=== PATIENT | female | born 1965 | race Caucasian/White ===

== ENCOUNTER 2018-05-01 17:41 | Emergency (ER) | payer MEDICARE, MEDICAID ==
[2018-05-01 17:51] VITALS: BP 118/79
[2018-05-01] MEDS ORDERED: DIPH/PERTUSS(ACELL)/TETANUS VAC/PF 0.5 ML SYR (>=10YO) IM ONE (18:01)
[2018-05-01] MEDS ORDERED: LIDOCAINE 1% INJ-PF (10 MG/ML) 30 ML SDV INJ ONE (18:01)
--- NOTE | 2018-05-01 18:02 | ER Document Report ---
HPI - HPI Patient complains to provider of: Cut right pinky toe Onset: Just prior to arrival Onset/Duration: Sudden Pain Level: 4 Context: 52-year-old obese nondiabetic female whose tetanus is not current the plantar surface of the right fifth toe on a piece of metal in the yard. Associated Symptoms: None Exacerbated by: Walking Relieved by: Denies Similar symptoms previously: No Recently seen / treated by doctor: No - ROS ROS below otherwise negative: Yes Systems Reviewed and Negative: Yes All other systems reviewed and negative Past Medical History - General Information source: Patient - Social History Smoking Status: Unknown if Ever Smoked Lives with: Family Family History: Reviewed & Not Pertinent - Medical History Medical History: Negative Surgical Hx: Negative Vertical Provider Document - CONSTITUTIONAL Agree With Documented VS: Yes Exam Limitations: No Limitations - INFECTION CONTROL TRAVEL OUTSIDE OF THE [place] IN LAST 30 DAYS: No - MUSCULOSKELETAL/EXTREMETIES Musculoskeletal/Extremeties: MAEW, FROM, Tender - Full-thickness cut to the plantar surface of the base of the right fifth toe - NEURO Level of Consciousness: Awake Motor/Sensory: No Motor Deficit, No Sensory Deficit - DERM Integumentary: Laceration Course - Vital Signs Vital signs: Temp Pulse Resp BP Pulse Ox 97.4 F 90 18 118/79 96 05/01/18 17:48 05/01/18 17:48 05/01/18 17:48 05/01/18 17:48 05/01/18 17:48 Procedures - Laceration/Wound Repair Right 5th digit Time completed: 19:05 Wound length (cm): 1 Wound's Depth, Shape: Linear, Other - Full-thickness Laceration pre-procedure: Sterile drapes applied, Other - surgiscrub Anesthetic type: 1% Lidocaine Volume Anesthetic (mLs): 2 Wound explored: Clean Irrigated w/ Saline (mLs): 60 Wound Repaired With: Sutures Suture Size/Type: 4:0, Prolene Number of Sutures: 2 Post-procedure wound care: Sterile dressing applied - Bacitracin gauze and Coban Post-procedure NV exam normal: Yes Complications: No Discharge - Discharge Clinical Impression: Right fifth toe laceration repair Condition: Good Disposition: HOME, SELF-CARE Instructions: Antibiotic Ointment Protection ([facility]), Laceration Care ([facility]), Tetanus Immunization Given ([facility]) Additional Instructions: Keep clean and dry Wear clean socks and shoes Bacitracin for 2 days Sutures out in 11 days Return to the emergency room for any signs of infection which is red, pus, red streak, increased pain Forms: Return to Work
== END 2018-05-01 19:17 | disposition home or self-care (01) ==
LOC: ER 17:41
PROC: 0HQMXZZ Repair Right Foot Skin, External Approach (ICD-10-PCS; principal; 2018-05-01)
DX: S91.114A Laceration without foreign body of right lesser toe(s) without damage to nail, initial encounter (principal); W26.8XXA Contact with other sharp object(s), not elsewhere classified, initial encounter; Y92.007 Garden or yard of unspecified non-institutional (private) residence as the place of occurrence of the external cause; Z23 Encounter for immunization
CPT/HCPCS: 99282; 90471; 90715; 12001; J3490